=== PATIENT | female | born 1965 | race Caucasian/White ===

== ENCOUNTER 2020-07-26 12:57 | Emergency (ER) | payer OTHER, SELFPAY ==
[2020-07-26] VITALS (7 sets, daily range): BP systolic 128–139; BP diastolic 81–91; PULSE 82–92; RESP 12–18; TEMP 36.6; O2SAT 96–100
--- NOTE | 2020-07-26 13:05 | ED.ALLEREA ---
HPI - Allergic Reaction General Chief complaint: Allergic Reaction Stated complaint: allergic rx Time Seen by Provider: 07/26/20 13:00 Source: patient Mode of arrival: ambulatory Limitations: no limitations History of Present Illness HPI narrative: This is a 55 year old female that presents to the ER for allergic reaction. Reports she had her allergy shots about an hour and a half ago. She was doing fine initially after this. Reports on her drive home she started to feel like her tongue and throat were swelling. Reports change in her voice. Also reports red rash. Denies chest pain, shortness of breath, vomiting or diarrhea. Related Data Allergies Allergy/AdvReac Type Severity Reaction Status Date / Time Sulfa (Sulfonamide Allergy Unknown Hives Verified 07/26/20 13:20 Antibiotics) Review of Systems Review of Systems: Narrative: CONSTITUTIONAL: Denies fever CARDIOVASCULAR: Denies chest pain RESPIRATORY: Denies dyspnea. GASTROINTESTINAL: Denies vomiting, or diarrhea. SKIN: Reports rash and itching. All systems reviewed & are unremarkable except as noted in HPI and below PMFSH Past Medical History Medical History (Updated 07/26/20 @ 15:01 by Lulu Canela PA-C) History of hypothyroidism History of seasonal allergies Exam Narrative: Exam Narrative: GENERAL: Well-appearing, well-nourished, and in no acute distress. HEAD: Normocephalic, atraumatic. EYES: EOMI. ENT: Nares clear, no rhinorrhea or epistaxis. Mucous membranes moist. Oropharynx appears mildly swollen. Bilateral TMs pearly jennings non-bulging. No lip swelling noted NECK: Supple. No adenopathy or masses. CHEST: Clear to auscultation. No respiratory distress. No wheezes rales or rhonchi HEART: Regular rate and rhythm. No murmur heard. Normal peripheral pulses. EXTREMITIES: Normal range of motion. No edema. SKIN: Warm, dry, no rash. NEURO: No focal deficits. Alert and oriented x3. PSYCH: Normal mood and affect Course Vital Signs Vital signs: Vital Signs Pulse Rate 89 07/26/20 13:14 Respiratory Rate 13 07/26/20 13:14 Pulse Oximetry 97 07/26/20 13:14 Temperature 97.9 F 07/26/20 13:16 Pulse Rate 85 07/26/20 13:45 Respiratory Rate 15 07/26/20 13:45 Blood Pressure 139/81 07/26/20 13:30 Pulse Oximetry 100 07/26/20 13:45 MDM - Allergic Reaction MDM Narrative Medical decision making narrative: Patient presents to the emergency department after having allergy shots with allergic reaction. Reporting hives, and swelling in the throat. Her vitals are stable. Given dose of epi, antihistamines, and steroid with relief. Monitored in the ED on chemical engineering technologist with continued improvement in symptoms. Feels much better and would like to go home. Will be given prescription for EpiPen's. Was instructed to follow-up with her manufacturing lead. She was given warnings to return to the ER Critical Care Time Critical Care Time Critical Care Time: Yes Total Critical Care Time: 35 Discharge Plan Discharge Clinical Impression: Allergic reaction Qualifiers: Encounter type: initial encounter Qualified Code(s): T78.40XA - Allergy, unspecified, initial encounter Patient Disposition: Home, Self-Care Condition: Stable Instructions: General Allergic Reaction (ED) Additional Instructions: Return to the emergency department if you experience fever, swelling of your mouth or throat, difficulty breathing, vomiting, or any other symptoms that are concerning to you You may continue a Zyrtec and Pepcid daily if needed. You have been given a prescription for an EpiPen if needed for any more severe allergic reactions Follow-up with your manufacturing lead Prescriptions: New epinephrine 0.3 mg/0.3 mL auto-injector 0.3 mg IM ONCE PRN (Reason: anaphylaxis) Qty: 2 RF: 0 Follow-up/Referrals: UNKNOWN,DOCTOR [Primary Care Provider] -
[2020-07-26] MEDS: EPINEPHrine HCL INJ 1 MG/ML AMPUL 0.3 MG IM (13:08)
[2020-07-26] MEDS: FAMOTIDINE 20 MG/2 ML VIAL IV PUSH (13:21)
[2020-07-26] MEDS: methylPREDNISolone SOD SUCC 125 MG VIAL IV PUSH (13:21)
[2020-07-26] MEDS: diphenhydrAMINE HCl INJ 50 MG/ML VIAL 25 MG IV PUSH (13:21)
--- NOTE | 2020-07-26 13:55 | PC.NURSE ---
Denies further trouble swallowing. Voice less hoarse.
== END 2020-07-26 15:21 | disposition home or self-care (01) ==
PROVIDERS: Emergency Provider Emergency Medicine
DX: L50.0 Allergic urticaria (principal); R22.0 Localized swelling, mass and lump, head; T50.905A Adverse effect of unspecified drugs, medicaments and biological substances, initial encounter; E03.9 Hypothyroidism, unspecified
CPT/HCPCS: 96372; 96374; 96375; 99284; J0171; J1200; J2930